=== PATIENT | male | born 1995 | race Caucasian/White ===

== ENCOUNTER 2017-08-24 22:56 | Emergency (ER) | payer BC, OTHER ==
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
[2017-08-25 00:21] VITALS: BP 131/74; PULSE 74; RESP 16; TEMP 97.9; O2SAT 96
== END 2017-08-25 00:21 | disposition home or self-care (01) ==
PROC: 0HQ1XZZ Repair Face Skin, External Approach (ICD-10-PCS; principal; 2017-08-24)
DX: S01.81XA Laceration without foreign body of other part of head, initial encounter (principal); F17.200 Nicotine dependence, unspecified, uncomplicated; Y04.0XXA Assault by unarmed brawl or fight, initial encounter